=== PATIENT | female | born 1960 | race Caucasian/White ===

== ENCOUNTER 2023-06-09 22:34 | Emergency (ER) | payer MEDICARE, OTHER, SELFPAY ==
[2023-06-09 22:40] VITALS: BP 140/84; PULSE 76; O2SAT 96
[2023-06-09 22:45] VITALS: BMI 33.1
[2023-06-10] VITALS: BP 126/59; PULSE 72; RESP 16; TEMP 36.6; O2SAT 98
--- NOTE | 2023-06-10 00:03 | PC.NURSE ---
Patient reports her jaw cracked and released and she is no longer having any pain. Awaiting ED provider.
--- OUTSIDE RECORDS SUMMARY | 2023-06-10 00:22 | XMS_ITS | Continuity of Care Document ---
Author Name Unknown Organization [facility] Address [address] [place] [address]- Care Team Providers Care Building Services Engineer Name Role Phone Jordan MEHTA, Glenny Vieira Primary Care Physician Encounter [facility] Date(s): 08/28/22 - 08/28/[address] [address]- Discharge Disposition: A-D/C AMA Attending Physician: Devon García MD Admitting Physician: Devon García MD Referring Physician: Not on Staff, Referring MD Allergies, Adverse Reactions, Alerts Substance Reaction Severity Status Xanax Active Ultram Active Percocet 5/325 Active Medications Lidoderm 5% film 1 patch, Topically, Daily, remove patches after 12 hours, # 15 each, 0 Refills, Maintenance, 09/28/19 6:47:41 EST Start Date: 09/28/19 Status: Ordered phenytoin 200 mg oral capsule, extended release 1 capsule = 200 mg, By Mouth, 2 times a day, # 30 capsule, 0 Refills, Maintenance, 09/28/19 5:25:33EST, CR Capsule Start Date: 09/28/19 Status: Ordered Vital Signs Most recent to oldest [Reference Range]: 1 2 Height 170 cm (08/28/22 5:04 PM) 170 cm (08/28/22 3:07 PM) Weight 75 kg (08/28/22 5:04 PM) 75 kg (08/28/22 3:07 PM) Oxygen Saturation [94-100 %] 96 % (08/28/22 1:44 PM) Pulse Rate [55-90 bpm] 80 bpm (08/28/22 1:44 PM) Blood Pressure [90-138/55-84 mm Hg] 156/ 84mm Hg *H* (08/28/22 1:44 PM) Respiratory Rate [16-30 br/min] 20 br/mi n (08/28/22 1:44 PM) Temperature [96.8-100.4 DegF] 97.9 DegF (08/28/22 1:44 PM) Mode of Delivery (Oxygen) Room air (08/28/22 1:44 PM) Blood pressure sites Arm, right (08/28/22 1:44 PM) Temperature Route Temporal (08/28/22 1:44 PM) Dry Weight 75 kg (08/28/22 5:04 PM) 75 kg (08/28/22 3:07 PM) Social History Social History Type Response Smoking Status Never (less than 100 in lifetime) entered on: 08/28/22 Sex Patient Care team information Personnel Name: Jordan MEHTA , Glenny Vieira Address: Address: [address] [place], [place] [address]
--- OUTSIDE RECORDS SUMMARY | 2023-06-10 00:22 | XMS_ITS | Continuity of Care Document ---
Author Name Unknown Organization [facility] Address [address] [place] [address]- Care Team Providers Care Rabies Inspector Name Role Phone Cole Minaya MD Primary Care Physician [phone] [facility] [place] Date(s): 08/17/20 - 08/17/[address] [address]- [facility] Discharge Disposition: A-D/C Home Attending Physician: Ganesh Iraheta DO Admitting Physician: Ganesh Iraheta DO Referring Physician: Not on Staff, Referring MD [...] CR Capsule Start Date: 09/28/19 Status: Ordered Results Radiology Reports * Exam Date Time Procedure Performing Provider Status 08/17/20 3:17 PM Chest 2 Views Frontal and Lat Robyn Osorio; Auth (Verified) Notes: (Chest 2 Views Frontal and Lat) Reason For Exam: Shortness of Breath RESULT: Chest 2 Views Frontal and Lat Chest 2 Views Frontal and Lat Hx of Present Illness: Shakey since this am. ? anxiety. distant hx of similar. Increased life stress; Reason: Shortness of Breath; Clinical Question(s): CHF COMPARISON: None. FINDINGS: LINES AND TUBES: None. LUNGS AND PLEURA: Clear lungs. Normal pulmonary vascularity. No pleural effusion. No pneumothorax. HEART, MEDIASTINUM AND NIDA: Heart is normal in size. Normal mediastinal and hilar contour. BONES AND SOFT TISSUES: No acute abnormality. IMPRESSION: No acute abnormality. WSN: [id number] Ordering Physician: Ganesh Iraheta Dictated By: Angelica Gama MD Dictated Date/Time: 08/17/20 3:18 pm Reviewed By: Angelica Gama MD Signed By: Angelica Gama MD Signed Date/Time: 08/17/20 3:18 pm Transcribed By: MARIA DEL ROSARIO Transcribed Date/Time: 08/17/20 3:17 pm Vital Signs Most recent to oldest [Reference Range]: 1 2 Height 168 cm (08/17/20 4:41 PM) 168 cm (08/17/20 2:32 PM) Weight 70.5 kg (08/17/20 4:41 PM) 70.5 kg (08/17/20 2:32 PM) Oxygen Saturation [94-100 %] 99 % (08/17/20 2:32 PM) Pulse Rate [55-90 bpm] 72 bpm (08/17/20 4:41 PM) 68 bpm (08/17/20 2:32 PM) Body Mass Index [18.5-24.99] 24.98 (08/17/20 4:41 PM) Blood Pressure [90-138/55-84 mm Hg] 122/ 75mm Hg (08/17/20 4:41 PM) 128/80mm Hg (08/17/20 2:32 PM) Respiratory Rate [16-30 br/min] 16 br/mi n (08/17/20 4:41 PM) 16 br/min (08/17/20 2:32 PM) Temperature [96.8-100.4 DegF] 97.7 DegF (08/17/20 2:32 PM) Mode of Delivery (Oxygen) Room air (08/17/20 2:32 PM) Temperature Route Femoral (08/17/20 2:32 PM) Dry Weight 70.5 kg (08/17/20 4:41 PM) 70.5 kg (08/17/20 2:32 PM) Weight Obtained Via Patient/family state d (08/17/20 2:32 PM)
[2023-06-10 02:00] VITALS: BP 116/72; PULSE 73; RESP 16; TEMP 36.7; O2SAT 98
--- NOTE | 2023-06-10 03:43 | PC.NURSE ---
Pt reports leaning back in bed and yawned, fet crack and jaw felt better, denies any pain and able to move jaw without issues. Waiting to see MD but would like to leave. Problem resolved.
--- NOTE | 2023-06-10 03:51 | PC.NURSE ---
Patient refused to wait and be seen by provider. Able to talk without ifficulty, reports this has happened before after being seen at the dentist. Pt did not want to wait and left without being seen.
== END 2023-06-10 03:45 | disposition left against medical advice (07) ==
PROVIDERS: Emergency Provider Emergency Medicine
DX: R68.84 Jaw pain (principal)
CPT/HCPCS: 99284

== ENCOUNTER 2024-03-30 11:21 | Emergency (ER) | payer MEDICARE, MEDICAID, SELFPAY ==
--- NOTE | ~2024-03-30 | XR_ITS ---
EXAMINATION: Bilateral rib series. Chest series. CLINICAL INFORMATION: Fall chest pain COMPARISON: CT chest performed same day TECHNIQUE: 8 images of the ribs and chest FINDINGS: There is prominent consolidation in the right upper lung left upper lung and right lower lung. There are small bilateral pleural effusions right greater than left. The cardiomediastinal silhouette is normal. Soft tissues unremarkable. Osseous structures including wrist. Possible minimally displaced fracture of the left seventh rib. This is not clearly identified on the CT scan. No additional fractures. XR/XR ribs BI min 4V w CXR1V IMPRESSION: 1. Bilateral airspace disease with appearance most compatible with pneumonia. 2. Small bilateral pleural effusions right greater than left. 3. Possible minimally displaced fracture left seventh rib. Correlate correlate with physical exam to help determine likelihood of fracture. This suspected fracture is not clearly identified on the CT scan. No additional suspected fractures.
[2024-03-30 11:29] VITALS: BP 125/73; PULSE 110; O2SAT 95
--- NOTE | 2024-03-30 11:30 | ECG_ITS ---
Test Reason : chest pain Blood Pressure : / mmHG Vent. Rate : 104 BPM Atrial Rate : 104 BPM P-R Int : 130 ms QRS Dur : 080 ms QT Int : 332 ms P-R-T Axes : 020 252 054 degrees QTc Int : 436 ms Sinus tachycardia with Premature atrial complexes Possible Right ventricular hypertrophy Inferior infarct , possibly acute Anterolateral infarct , age undetermined ACUTE [place] / STEMI Abnormal ECG No previous ECGs available Referred By: Shaila Rivera Electronically Signed By:GILBERTO RUDD MD
[2024-03-30 11:33] VITALS: BP 85/46; PULSE 101; RESP 19; TEMP 37.1; O2SAT 96; BMI 28.2
--- NOTE | 2024-03-30 11:33 | ED_ITS ---
HPI - General Adult General Chief complaint: General Medical Stated complaint: WEAK,FALL 3D AGO,L SIDE /DEEP BREATH PAIN PER EMS Time Seen by Provider: 03/30/24 11:33 Source: patient and old records reviewed Mode of arrival: ambulatory Limitations: other (poor historian) History of Present Illness ED Provider: EILEEN HPI narrative: 63 yo female with PMH of seizures on phenytoin and MS not on medications here with vague complaints of chest heaviness, shoulder pain and weakness. She blames all of this on a lotion her proposal editor Rx 7 days ago. She notes she even felt weak 3 days ago and fell hitting her ribs no headstrike no LOC she is not on thinners. She has central and R/L sided chest heaviness but denies nausea. She notes the pain will not go away across the ribs but it does not hurt to move or touch the ribs. MD complaint: chest heaviness, not feeling well, weakness Onset (ago): day(s) (3) Location: chest Radiation: other (initially ) Severity: moderate Quality: other (heaviness) Pain Consistency: constant Relieving factors: none Exacerbating factors: none Associated symptoms: malaise, weakness and other (myalgias) Treatments prior to arrival: none Related Data Allergies Allergy/AdvReac Type Severity Reaction Status Date / Time acetaminophen [From Percocet] Allergy Hives Verified 03/30/24 11:35 oxycodone [From Percocet] Allergy Hives Verified 03/30/24 11:35 tramadol [From Ultram] Allergy Unknown Verified 03/30/24 11:35 alprazolam [From Xanax] AdvReac Seizure Verified 03/30/24 11:35 Review of Systems 2 Review of Systems: Constitutional : No Weight loss, No Fever, No Chills, pos fatigue ENT/Mouth : No sore throat, No Rhinorrhea Eyes: No Eye Pain, No Swelling Cardiovascular : pos Chest Pain, no SOB, pos Dyspnea on Exertion, No Orthopnea, No Edema, No Palpitations Respiratory : No Cough, No Sputum Gastrointestinal : pos Nausea, No Vomiting, No Diarrhea, No abdominal Pain, No Hematochezia, No Melena Genitourinary : No Dysuria, No Urinary Frequency Musculoskeletal : No joint pain, No Myalgias, No Joint Swelling Skin : No Skin Lesions, No rash Neuro : pos Weakness, No Numbness, No Dizziness, No Headache All other systems reviewed and are negative [facility] Past Medical History Source: old records reviewed Medical History Multiple sclerosis Seizures Social History Social History (Updated 03/30/24 @ 12:46 by Siri Al DO) Alcohol intake: never Patient Tobacco Use Status: Never used Tobacco Advance Directives: No Physical Exam ED Vital Signs: Vital Signs - 24 hr 03/30/24 11:33 03/30/24 12:57 Temperature 98.8 F Pulse Rate 101 H 100 Respiratory Rate 19 20 Blood Pressure 85/46 L 107/56 L Pulse Oximetry 96 94 Oxygen Delivery Method Room Air Room Air BMI result Body Mass Index 28.2 Appearance: Alert. Oriented X3. No acute distress. Eyes: Pupils equal, round and reactive to light. ENT: Pharynx normal. atraumatic Neck: Normal inspection. Neck supple. no midline ttp CVS: Normal heart rate and rhythm. Pulses normal. Chest: no ttp no deformity no pain to palpation of the ribs Respiratory: No respiratory distress. Breath sounds both bases are diminished. Abdomen: Soft and nontender. Skin: Skin warm and dry. Normal skin color. Normal skin turgor. Extremities: No lower extremity edema. Neuro: Oriented X 3. No motor deficit. No sensory deficit. Course Course Course Narrative: This is a rapid medical exam performed by Verena Rivera NP: Additional HPI, ROS, PE not included below will be deferred to primary provider. Patient is a 63-year-old female presenting to the ED with complaint of weakness, muscle aches, decreased appetite for the past 10 days after using a cream prescribed by her proposal editor 3 times. Also had a fall 3 days ago due to weakness, complains of bilateral chest pain related to this. Denies head strike or loss of consciousness with fall. Plan: viral serology, labs, UA, xray Reevaluation(s) Reevaluation #1: call out at 1220 returned call at 1224 most likely already infarcted plan to get non con CT chest to better evaluate her R lung and injury, likely CCU Medications Administered Discontinued Medications Generic Name Dose Route Start Last Admin Trade Name Freq PRN Reason Stop Dose Admin Aspirin 324 mg 03/30/24 12:43 03/30/24 12:51 Aspirin 81 Mg Tab.Chew PO 03/30/24 12:44 324 mg ONCE ONE Administration Medical Decision Making Medical Decision Making [facility] Narrative: 63 yo female with PMH of seizures who blames a cream her proposal editor started her that has resulted in weakness, not feeling well and caused her to feel dizzy and hit her ribs but no headstrike she then told me she had chest heaviness but is not reproduceable and I see no deformity. Her EKGs are concerning and she has what sounds like fluid in her lungs. I am going to consult cardiac interventional team given STEMI concerns - PO aspirin ordered has no concerns for head trauma or internal bleeding. BP recheck stable I have held fluids. She has ongoing mild chest discomfort not a candidate for nitro Differential Diagnosis Differential Diagnoses: The differential diagnosis associated with the presentation includes ACS, rib injury, pneumonia, effusion Admission/Observation Consideration of admission/observation: Escalation of care including admission/observation considered transfer to tertiary center Consult Healthcare Provider Management of the patient was discussed with: Turbine Engineer cardiac fellow at [facility] - heparin and aspirin as long as no contraindications transfer to CCU Lab Data [facility] Lab Attestation statement: I reviewed the patient's lab results. 03/30/24 12:23 03/30/24 12:23 Labs: Lab Results 03/30/24 Range/Units 12:23 WBC 10.8 (4.8-10.8) X10*3/uL RBC 4.53 (4.20-5.50) X10*6/uL Hgb 12.9 (12.0-16.0) g/dl Hct 37.3 (37.0-47.0) % MCV 82.3 (80.0-98.0) fL MCH 28.5 (27.0-33.0) pg MCHC 34.6 (31.0-35.0) g/dl RDW 13.7 (11.0-16.0) % Plt Count 484 H (160-400) X10*3/uL MPV 9.6 (9.4-12.3) fL Immature Gran % (Auto) 2.6 H (0.0-0.4) % Neut % (Auto) 68.5 (45-73) % Lymph % (Auto) 18.2 L (20-40) % Wilson % (Auto) 9.0 (2-11) % Eos % (Auto) 1.1 (0-4) % Baso % (Auto) 0.6 (0-2) % Lymph # (Auto) 2.0 (1.2-4.9) X10*3/uL Wilson # (Auto) 1.0 (0.1-1.2) X10*3/uL Eos # (Auto) 0.1 (0.0-0.4) X10*3/uL Baso # (Auto) 0.1 (0.0-0.2) X10*3/uL Abs Immat Gran (auto) 0.28 H (0.00-0.03) X10*3/uL Absolute Neuts (auto) 7.4 (2.0-8.3) x10*3/uL Absolute Nucleated RBC 0.000 (0.0-0.012) X10*3/uL Nucleated RBC % (auto) 0.0 (0.0-0.2) /100WBC PT 12.2 (11.1-13.3) SEC INR 1.0 (0.9-1.1) Sodium 132 L (135-145) mmol/L Potassium 4.1 (3.3-5.1) mmol/L Chloride 98 (96-108) mmol/L Carbon Dioxide 22 (22-29) mmol/L Anion Gap 16 (12-20) BUN 28 H (9-16) mg/dL Creatinine 1.03 (0.5-1.4) mg/dL Estim Creat Clear Calc 61.4 Estimated GFR 54 Random Glucose 134 H (60-115) mg/dL Calcium 9.0 (8.4-10.2) mg/dL Total Bilirubin 0.3 (0.0-1.0) mg/dL AST 27 (5-31) U/L ALT 109 H (0-31) U/L Alkaline Phosphatase 116 (39-117) U/L Troponin I High Sens 2759.7 H* (<3.5-17.0) ng/L Total Protein 6.0 L (6.5-8.0) g/dL Albumin 3.2 L (3.5-5.0) g/dL Lipase 97 H (8-78) U/L Independent Interpretation I performed an independent interpretation of an: EKG, Plain X-Ray (effusion) and CT Scan (fluid in lungs no PTX) Interpretation: Rate: 104 Rhythm: sinus tachycardia [place]: left Normal P waves. Normal KARRIE. Normal QRS complex. ST T wave : artifact but concern for ST elevation in V4-V6, q waves noted inf leads qTC: 436 prior studies: no prior The study has been interpreted contemporaneously by me. EKG #2 Rate: 105 Rhythm: sinus tachycardia [place]: left Normal P waves. Normal KARRIE. Normal QRS complex. ST T wave : q waves inf leads, ST elevation and doming in V4-V6 qTC: 438 prior studies: changes more evident from first EKG The study has been interpreted contemporaneously by me. . Radiology Impression Discussion of test interpretation with radiology: I have reviewed the radiologist's reading. Critical Care Time Critical Care Time Critical Care Time: Yes Total Critical Care Time: 60 Attestation: review of records, medical consult, repeat assessments, transfer to tertiary center I attest to this time spent taking care of the patient Discharge Plan Discharge Clinical Impression: ST elevation on ECG, Bilateral pleural effusion, Non-ST elevation MD (NSTEMI) Chest pain Qualifiers: Chest pain type: precordial pain Qualified Code(s): R07.2 - Precordial pain Patient Disposition: [facility] Transfer Details: [facility] Print Language: Bhutanese
--- NOTE | 2024-03-30 12:13 | ECG_ITS ---
Test Reason : chest pain Blood Pressure : / mmHG Vent. Rate : 105 BPM Atrial Rate : 105 BPM P-R Int : 126 ms QRS Dur : 084 ms QT Int : 332 ms P-R-T Axes : 008 253 057 degrees QTc Int : 438 ms Sinus tachycardia Inferior-posterior infarct (cited on or before 30-MAR-2024) Anterolateral infarct (cited on or before 30-MAR-2024) ACUTE IN / STEMI Abnormal ECG When compared with ECG of 30-MAR-2024 12:09, Premature atrial complexes are no longer Present Referred By: Siri Al Electronically Signed By:GILBERTO RUDD MD
[2024-03-30 12:30] LABS: MANUAL DIFF FLAG NO
[2024-03-30 12:33] LABS: Basophils Absolute Auto 0.1 X10*3/uL (0.0-0.2); Basophils Percent Auto 0.6 % (0-2); Eosinophils Absolute Auto 0.1 X10*3/uL (0.0-0.4); Eosinophils Percent Auto 1.1 % (0-4); Hematocrit 37.3 % (37.0-47.0); Hemoglobin 12.9 g/dl (12.0-16.0); Imm Gran Abs Auto 0.28 X10*3/uL (0.00-0.03); Imm Gran Pct Auto 2.6 % (0.0-0.4); Lymphocytes Percent Auto 18.2 % (20-40); Mean Corpuscular HGB Conc 34.6 g/dl (31.0-35.0); Mean Corpuscular Hemoglobin 28.5 pg (27.0-33.0); Mean Corpuscular Volume 82.3 fL (80.0-98.0); Mean Platelet Volume 9.6 fL (9.4-12.3); Neutrophils Absolute Auto 7.4 x10*3/uL (2.0-8.3); Neutrophils Percent Auto 68.5 % (45-73); Platelet Count 484 X10*3/uL (160-400); Red Blood Count 4.53 X10*6/uL (4.20-5.50); Red Cell Distribution Width 13.7 % (11.0-16.0); White Blood Count 10.8 X10*3/uL (4.8-10.8)
[2024-03-30 12:46] LABS: Alanine Aminotransferase 109 U/L (0-31); Albumin Level 3.2 g/dL (3.5-5.0); Alkaline Phosphatase 116 U/L (39-117); Anion Gap 16 (12-20); Aspartate Amino Transferase 27 U/L (5-31); Bilirubin Total 0.3 mg/dL (0.0-1.0); Blood Urea Nitrogen 28 mg/dL (9-16); Carbon Dioxide 22 mmol/L (22-29); Chloride 98 mmol/L (96-108); Creatinine Clr Calc Pharmacy 61.4; Estimated Glomerular Filt Rate 54; Glucose Random 134 mg/dL (60-115); Lipase 97 U/L (8-78); Potassium 4.1 mmol/L (3.3-5.1); Prothrombin Time 12.2 SEC (11.1-13.3); Sodium 132 mmol/L (135-145)
[2024-03-30] MEDS: Aspirin 81 MG TAB.CHEW 324 MG PO (12:51)
[2024-03-30 12:57] VITALS: BP 107/56; PULSE 100; RESP 20; O2SAT 94
[2024-03-30 13:18] LABS: Influenza A PCR NEGATIVE (Negative); Influenza B PCR NEGATIVE (Negative); Resp Syncy Virus RNA Qual PCR NEGATIVE (Negative); SARS COV2 PCR INHOUSE NEGATIVE (Negative)
[2024-03-30 13:22] LABS: B Type Natriuretic Peptide 1479 pg/mL (<100)
[2024-03-30 13:24] LABS: Lactic Acid 1.5 mmol/L (0.5-2.0)
[2024-03-30] MEDS: Heparin Sodium,Porcine 5,000 UNIT/ML VIAL 4000 UNIT IVPUSH (13:24)
[2024-03-30] MEDS: Heparin Sodium,Porcine/1/2NS 25,000 UNIT/250 ML IV.SOLN 9.8 UNIT IVCONT (13:25)
--- NOTE | 2024-03-30 13:29 | PC.NURSE ---
per provider verbal order: initial 4000u heparin bolus given, heparin started at 12u/kg/hr per wt based protocol prior to [facility] transfer. per provider no resulting PTT - verbal order to medicate w/o lab result. pt transported via EMS.
--- NOTE | 2024-03-30 13:33 | PC.NURSE ---
REPORT GIVEN TO THIERNO AT [facility] REGARDING THE PATIENT AND HER HEALTH STATUS. NO QUESTIONS AT THE TIME OF PHONE CALL. ONLY ASA GIVEN AND NOT HEPARIN PATIENT WAS TRANSFERRED.
[2024-03-30 13:36] VITALS: BP 107/56; PULSE 100; RESP 16; TEMP 36.8; O2SAT 98
[2024-03-30 13:51] LABS: COVID-19 Test Negative (Negative); IDNOW Serial# 08D9AD1C
== END 2024-03-30 13:37 | disposition short-term general hospital (02) ==
PROVIDERS: Registered Nurse Emergency; Emergency Provider Emergency Medicine
DX: I21.3 ST elevation (STEMI) myocardial infarction of unspecified site (principal); J90 Pleural effusion, not elsewhere classified; R07.2 Precordial pain; R00.0 Tachycardia, unspecified; R53.81 Other malaise; G35 Multiple sclerosis; Z03.818 Encounter for observation for suspected exposure to other biological agents ruled out
CPT/HCPCS: 0241U; 36415; 71111; 71250; 80053; 83605; 83690; 83880; 84484; 85025; 85610; 87040; 87635; 93005; 96374; 99285; J1644

== ENCOUNTER → 2024-03-30 11:30 | Outpatient (BNV) | payer MEDICARE, MEDICAID, SELFPAY | PROVIDERS: Emergency Provider Emergency Medicine; Visit Provider Internal Medicine Cardiovascular Disease | DX: I21.4 Non-ST elevation (NSTEMI) myocardial infarction (principal) | CPT/HCPCS: 93010 ==